=== PATIENT | male | born 1970 | race Caucasian/White ===

== ENCOUNTER 2018-05-02 08:11 | Emergency (ER) | payer MEDICAID ==
[~2018-05-02] VITALS: Ht 180.3 cm; Wt 843.2 kg
[2018-05-02 08:19] VITALS: BP 127/87; Ht 180.3 cm; Wt 843.2 kg
[2018-05-02] MEDS ORDERED: PHENERGAN DM SYR5 ML PO (08:32)
[2018-05-02] MEDS ORDERED: ZITHROMAX TRI-500 MG PO (08:32)
[2018-05-02] MEDS ORDERED: TAMIFLU75 MG PO (10:10)
== END 2018-05-02 10:19 | disposition home or self-care (01) ==
LOC: D.ER 08:11
DX: B34.9 Viral infection, unspecified (principal); J09.X2 Influenza due to identified novel influenza A virus with other respiratory manifestations; R09.89 Other specified symptoms and signs involving the circulatory and respiratory systems; M79.18 Myalgia, other site; R53.83 Other fatigue